=== PATIENT | male | born 1955 | race Caucasian/White ===

== ENCOUNTER 2018-02-24 13:59 | Emergency (ER) | payer BC ==
[~2018-02-24] VITALS: Ht 152.4 cm; Wt 82.7 kg
[2018-02-24 14:01] VITALS: TEMP 98
[2018-02-24 14:58] LABS: BASO # 0.1 (0.0-0.2); EOS # 1.5 (0.0-0.7); GRAN # 4.5 (1.4-6.5); GRAN % 46.7 % (42.2-75.2); HEMATOCRIT 39.6 % (42.0-52.0); HEMOGLOBIN 13.5 g/dl (13.5-18.0); LYMPH # 2.9 (1.2-3.4); LYMPH % 29.3 % (20.0-51.0); MEAN CELL VOLUME 85 fl (80.0-100.0); MEAN CORPUSCULAR HEMOGLOBIN 29 pg (27.0-31.0); MEAN CORPUSCULAR HGB CONC 34 g/dl (33.0-37.0); MONO # 0.8 (0.1-0.6); MONO % 7.7 % (1.7-9.3); PLATELET COUNT 308 K/mm3 (130-400); PROTHROMBIN TIME 11.2 SECONDS (9.7-12.8); RED BLOOD COUNT 4.65 M/mm3 (4.20-5.60); REDCELL DISTRIBUTION WIDTH-CV 13.5 % (11.5-14.5)
[2018-02-24 15:19] LABS: BILIRUBIN,TOTAL 0.3 mg/dL (0.0-1.0); CALCIUM 9.3 mg/dL (8.4-10.2); CREATININE, serum 1.4 mg/dL (0.66-1.25); POTASSIUM 3.9 mmol/L (3.4-5.0)
[2018-02-24 15:31] LABS: TROPONIN-I 0.014 ng/mL (0.000-0.034)
[2018-02-24] MEDS ORDERED: ASPIRIN 81M81 MG/TA2 PO (17:22)
[2018-02-24] MEDS ORDERED: NORVASC 10MG10 MG PO (17:23)
[2018-02-24] MEDS ORDERED: ISORDIL TITRADO30 MG PO (17:24)
[2018-02-24] MEDS ORDERED: LIPITOR 10MG10 MG PO (17:24)
[2018-02-24] MEDS ORDERED: VASOTEC20 MG PO (17:25)
[2018-02-24] MEDS ORDERED: TYLENOL 500MG500 MG PO (17:26)
[2018-02-24] MEDS ORDERED: BONINE25 MG PO (17:53)
[2018-02-24 17:57] VITALS: BP 130/100; PULSE 88
== END 2018-02-24 18:20 | disposition home or self-care (01) ==
LOC: COL.ER 13:59
PROVIDERS: Emergency Medicine
DX: R42 Dizziness and giddiness (principal); R53.81 Other malaise; R53.83 Other fatigue; I10 Essential (primary) hypertension; Z79.82 Long term (current) use of aspirin; Z79.899 Other long term (current) drug therapy; Z87.891 Personal history of nicotine dependence
CPT/HCPCS: J7050

== ENCOUNTER 2018-04-01 07:10 | Day surgery (SDC) | payer BC ==
[~2018-04-01] VITALS: Ht 167.7 cm; Wt 81.0 kg
[~2018-04-01 07:10] MED LIST: ASPIRIN 81M81 MG/TA2 PO; BONINE25 MG PO; ISORDIL TITRADO30 MG PO; LIPITOR 10MG10 MG PO; NORVASC 10MG10 MG PO; TYLENOL 500MG500 MG PO; VASOTEC20 MG PO
[2018-04-01 07:36] LABS: HEMATOCRIT 43.6 % (42.0-52.0); HEMOGLOBIN 14.4 g/dl (13.5-18.0); MEAN CELL VOLUME 86 fl (80.0-100.0); MEAN CORPUSCULAR HEMOGLOBIN 28 pg (27.0-31.0); MEAN CORPUSCULAR HGB CONC 33 g/dl (33.0-37.0); MEAN PLATELET VOLUME 8.4 fl (7.4-10.4); PLATELET COUNT 347 K/mm3 (130-400); PROTHROMBIN TIME 11.6 SECONDS (9.7-12.8); RED BLOOD COUNT 5.08 M/mm3 (4.20-5.60); REDCELL DISTRIBUTION WIDTH-CV 13.1 % (11.5-14.5)
[2018-04-01 07:39] LABS: CALCIUM 9.4 mg/dL (8.4-10.2); CREATININE, serum 1.42 mg/dL (0.66-1.25); POTASSIUM 3.9 mmol/L (3.4-5.0)
[2018-04-01] MEDS ORDERED: COREG 3.123.125 MG/T PO (08:14)
[2018-04-01] MEDS ORDERED: ZYRTEC 10MG10 MG PO (08:16)
[2018-04-01 08:44] VITALS: BP 121/78; BP 155/99; PULSE 85; PULSE 91; TEMP 98.9
[2018-04-01 09:59] VITALS: BP 129/82; PULSE 75
[2018-04-01 10:50] VITALS: BP 112/72; PULSE 78
--- NOTE | 2018-04-01 10:50 | NUR ---
Pt returned to [facility] 12 per bed s/p heart cath. Pt resting well, son at bedside.
[2018-04-01] MEDS ORDERED: LIPITOR 80MG80 MG PO (10:53)
[2018-04-01] MEDS ORDERED: IMDUR 30MG30 MG/TAB PO (10:54)
[2018-04-01 11:05] VITALS: BP 111/67; PULSE 78
[2018-04-01 11:20] VITALS: BP 96/84; PULSE 78
[2018-04-01 11:35] VITALS: BP 109/80; PULSE 82
--- NOTE | 2018-04-01 11:45 | NUR ---
Pt transfered to cart by EMS. Pt is being transfered to [facility].
--- NOTE | 2018-04-01 12:00 | NUR ---
Report to Lori Kraft RN at [facility].
== END 2018-04-01 12:35 | disposition home or self-care (01) ==
LOC: COL.CAR 07:10
PROVIDERS: Internal Medicine Cardiovascular Disease
DX: I25.10 Atherosclerotic heart disease of native coronary artery without angina pectoris (principal); R94.31 Abnormal electrocardiogram [ECG] [EKG]; R53.83 Other fatigue; I47.1 Supraventricular tachycardia; I07.1 Rheumatic tricuspid insufficiency; E78.5 Hyperlipidemia, unspecified; I12.9 Hypertensive chronic kidney disease with stage 1 through stage 4 chronic kidney disease, or unspecified chronic kidney disease; N18.9 Chronic kidney disease, unspecified; Z79.82 Long term (current) use of aspirin
CPT/HCPCS: C1760; C1894; J1644; J2250; J3010; Q9967

== ENCOUNTER 2018-08-04 09:24 | Inpatient (IN) | payer BC ==
[~2018-08-04] VITALS: Ht 167.6 cm; Wt 78.2 kg
[~2018-08-04 09:24] MED LIST changes: +COREG 3.123.125 MG/T PO; +IMDUR 30MG30 MG/TAB PO; +LIPITOR 80MG80 MG PO; +ZYRTEC 10MG10 MG PO
[2018-08-04 13:04] VITALS: BP 128/77; PULSE 88; TEMP 97.4
[2018-08-04] MEDS ORDERED: DULCOLAX STOOL100 MG PO (13:46)
[2018-08-04] MEDS ORDERED: MELATONIN5 M1 SL (13:47)
[2018-08-04] MEDS ORDERED: ROXICODONE 55 MG/TAB PO (13:49)
[2018-08-04] MEDS ORDERED: TYLENOL 500MG500 MG PO (13:52)
[2018-08-04] MEDS ORDERED: ASPIRIN 81M81 MG/TA2 PO (13:59)
[2018-08-04] MEDS ORDERED: LIPITOR 40MG TA40 MG PO (14:01)
[2018-08-04] MEDS ORDERED: COREG 25MG25 MG/TAB PO (14:04)
[2018-08-04] MEDS ORDERED: NITROSTAT0.4 MG/TAB SL (14:05)
[2018-08-04 17:20] VITALS: BP 150/86; PULSE 100; TEMP 98.4
[2018-08-04 17:22] VITALS: BP 150/86; PULSE 100; TEMP 98.4
[2018-08-04 17:25] VITALS: BP 150/86; PULSE 100; TEMP 98.4
[2018-08-04 17:29] VITALS: BP 150/86; PULSE 100; TEMP 98.4
[2018-08-05 05:57] VITALS: BP 156/81; PULSE 83; TEMP 98.3
[2018-08-05 15:54] VITALS: BP 149/88; PULSE 82; TEMP 98.5
[2018-08-06 05:02] VITALS: BP 158/88; PULSE 91; TEMP 98.9
[2018-08-06 17:32] VITALS: BP 123/72; PULSE 74; TEMP 98.8
[2018-08-07 03:16] VITALS: BP 147/65; PULSE 75; TEMP 98.5
[2018-08-07 15:40] VITALS: BP 126/76; PULSE 82; TEMP 98.2
[2018-08-08 05:33] VITALS: BP 154/68; PULSE 78; TEMP 98.3
[2018-08-08 10:24] LABS: BASO # 0.1 (0.0-0.2); BASO % 0.8 % (0.0-2.0); EOS # 1.3 (0.0-0.7); EOS % 9.5 % (0-4.0); GRAN # 9.4 (1.4-6.5); GRAN % 66.6 % (42.2-75.2); HEMATOCRIT 29.5 % (42.0-52.0); HEMOGLOBIN 9.1 g/dl (13.5-18.0); LYMPH # 2.2 (1.2-3.4); LYMPH % 15.5 % (20.0-51.0); MEAN CELL VOLUME 89 fl (80.0-100.0); MEAN CORPUSCULAR HEMOGLOBIN 27 pg (27.0-31.0); MEAN CORPUSCULAR HGB CONC 31 g/dl (33.0-37.0); MEAN PLATELET VOLUME 8.8 fl (7.4-10.4); MONO % 6.8 % (1.7-9.3); PLATELET COUNT 832 K/mm3 (130-400); RED BLOOD COUNT 3.32 M/mm3 (4.20-5.60); REDCELL DISTRIBUTION WIDTH-CV 18.5 % (11.5-14.5)
[2018-08-08 10:41] LABS: CALCIUM 9.3 mg/dL (8.4-10.2); CREATININE, serum 1.95 (0.66-1.25); MAGNESIUM 2.3 mg/dL (1.6-2.3); POTASSIUM 4.2 mmol/L (3.4-5.0)
[2018-08-08 15:11] VITALS: BP 138/79; PULSE 76; TEMP 98.3
[2018-08-08 15:33] LABS: MUCOUS Present /lpf; PH 5 (5-8); SQUAMOUS EPITHELIAL 0-2 /hpf; URINE APPEARANCE Clear; URINE BACTERIA None Seen /hpf; URINE BILIRUBIN Negative (NEGATIVE); URINE BLOOD Negative (NEGATIVE); URINE COLOR Yellow; URINE GLUCOSE Negative (NEGATIVE); URINE KETONE Negative (NEGATIVE); URINE LEUKOCYTE ESTERASE Negative (NEGATIVE); URINE NITRATE Negative (NEGATIVE); URINE PROTEIN(semi-quant) 1+ (NEGATIVE); URINE RBC 0-2 /hpf; URINE UROBILINOGEN Negative (NEGATIVE)
[2018-08-08 17:11] LABS: COLLECTION METHOD CLEAN CATCH
[2018-08-09 04:53] VITALS: BP 139/79; PULSE 78; TEMP 98.6
[2018-08-09 06:19] LABS: BASO # 0.1 (0.0-0.2); BASO % 0.9 % (0.0-2.0); EOS # 1.4 (0.0-0.7); EOS % 11.2 % (0-4.0); GRAN # 7.9 (1.4-6.5); GRAN % 62.2 % (42.2-75.2); LYMPH # 2.4 (1.2-3.4); LYMPH % 18.7 % (20.0-51.0); MEAN CELL VOLUME 87 fl (80.0-100.0); MEAN CORPUSCULAR HGB CONC 32 g/dl (33.0-37.0); MEAN PLATELET VOLUME 8.4 fl (7.4-10.4); MONO # 0.8 (0.1-0.6); MONO % 6.3 % (1.7-9.3); PLATELET COUNT 792 K/mm3 (130-400); RED BLOOD COUNT 3.07 M/mm3 (4.20-5.60); REDCELL DISTRIBUTION WIDTH-CV 18.1 % (11.5-14.5)
[2018-08-09 06:22] LABS: HEMATOCRIT 26.6 % (42.0-52.0); HEMOGLOBIN 8.4 g/dl (13.5-18.0); MEAN CORPUSCULAR HEMOGLOBIN 27 pg (27.0-31.0)
[2018-08-09 06:28] LABS: CALCIUM 8.9 mg/dL (8.4-10.2); CREATININE, serum 1.82 (0.66-1.25); POTASSIUM 3.9 mmol/L (3.4-5.0)
[2018-08-09 16:48] VITALS: BP 127/72; PULSE 72; TEMP 98.4
[2018-08-10 03:41] VITALS: BP 144/75; PULSE 76; TEMP 98.2
[2018-08-10] MEDS ORDERED: FERRO-TIME325 MG PO (10:47)
== END 2018-08-10 13:30 | disposition home or self-care (01) | DRG 948 ==
PROVIDERS: Physician Assistant; ADMIT Internal Medicine
DX: R53.81 Other malaise (principal); E87.1 Hypo-osmolality and hyponatremia; I25.10 Atherosclerotic heart disease of native coronary artery without angina pectoris; N18.3 Chronic kidney disease, stage 3 (moderate); F03.90 Unspecified dementia, unspecified severity, without behavioral disturbance, psychotic disturbance, mood disturbance, and anxiety; E78.5 Hyperlipidemia, unspecified; D47.3 Essential (hemorrhagic) thrombocythemia; D63.1 Anemia in chronic kidney disease; D72.829 Elevated white blood cell count, unspecified; I12.9 Hypertensive chronic kidney disease with stage 1 through stage 4 chronic kidney disease, or unspecified chronic kidney disease; E11.65 Type 2 diabetes mellitus with hyperglycemia; E11.22 Type 2 diabetes mellitus with diabetic chronic kidney disease; Z95.1 Presence of aortocoronary bypass graft; Z86.73 Personal history of transient ischemic attack (TIA), and cerebral infarction without residual deficits; Z87.891 Personal history of nicotine dependence
CPT/HCPCS: 99222-AI; 99232-AI; 99239